=== PATIENT | male | born 1980 | race Caucasian/White ===

== ENCOUNTER 2020-01-11 00:10 | Emergency (ER) | payer MEDICAID, OTHER ==
[~2020-01-11] VITALS: Ht 177.8 cm; Wt 70.0 kg
[2020-01-11] MEDS ORDERED: acetaminophen 325mg tablet PO ONE (00:35)
--- NOTE | 2020-01-11 01:17 | NUR ---
Patient unable to sit still, twitching and moving constantly.
[2020-01-11 03:43] LABS: PARTIAL THROMBOPLASTIN TIME 31 SECONDS (22-32)
[2020-01-11 03:45] LABS: ALANINE AMINOTRANSFERASE 87 U/L (12-78); ALBUMIN 3.2 G/DL (3.4-5.0); ALBUMIN/GLOBULIN RATIO 1.1 (1.1-1.5); ALKALINE PHOSPHATASE 64 IU/L (46-116); ANION GAP 6 (8-16); ASPARTATE AMINO TRANSFERASE 54 U/L (10-37); BILIRUBIN,TOTAL 0.3 MG/DL (0.1-1.0); BLOOD UREA NITROGEN 13 MG/DL (7-18); BUN/CREATININE RATIO 11.9 (5.4-32.0); CALCIUM 8.2 MG/DL (8.5-10.1); CHLORIDE 103 MMOL/L (99-107); CREATININE 1.09 MG/DL (0.60-1.10); GLUCOSE 90 MG/DL (70-104); POTASSIUM 4.3 MMOL/L (3.5-5.1); SODIUM 138 MMOL/L (135-145); TOTAL CARBON DIOXIDE 28.6 MMOL/L (24-32); TOTAL PROTEIN 6.1 G/DL (6.4-8.2); eGFR 75 ML/MIN
[2020-01-11 03:48] LABS: BASOPHILS # (AUTO) 0.1 X10'3 (0-0.2); BASOPHILS % (AUTO) 0.5 % (0-1); EOSINOPHILS # (AUTO) 0.1 X10'3 (0-0.9); EOSINOPHILS % (AUTO) 1.1 % (0-6); HEMOGLOBIN 12.9 g/dl (14.0-17.9); LYMPHOCYTES # (AUTO) 1.8 X10'3 (1.1-4.8); LYMPHOCYTES % (AUTO) 15.9 % (21-51); MEAN CORPUSCULAR HEMOGLOBIN 31.6 PG (27.0-31.0); MEAN CORPUSCULAR HGB CONC 33.8 g/dL (33.0-36.5); MEAN CORPUSCULAR VOLUME 93.6 FL (78-98); MEAN PLATELET VOLUME 7.2 FL (7.4-10.4); MONOCYTES # (AUTO) 0.9 X10'3 (0-0.9); MONOCYTES % (AUTO) 7.8 % (2-12); NEUTROPHILS # (AUTO) 8.6 X10'3 (1.8-7.7); NEUTROPHILS % (AUTO) 74.7 % (42-75); PLATELET COUNT 378 X10'3 (140-440); RED BLOOD COUNT 4.06 X10'6 (4.70-6.10); RED CELL DISTRIBUTION WIDTH 13.2 % (11.5-14.5); WHITE BLOOD COUNT 11.5 X10'3 (4.5-11.0)
[2020-01-11 04:32] VITALS: BP 93/66
--- NOTE | 2020-01-11 05:01 | NUR ---
Patient continued to twitch and mumble during ER visit, even when he was sleeping.
== END 2020-01-11 05:02 | disposition home or self-care (01) ==
LOC: ER 00:11
DX: R50.9 Fever, unspecified (principal); R60.0 Localized edema; F15.10 Other stimulant abuse, uncomplicated; R79.1 Abnormal coagulation profile; I10 Essential (primary) hypertension; Z59.0 Homelessness
CPT/HCPCS: 36415; 71045; 80053; 83735; 84145; 85025; 85610; 85730; 87040; 93005; 99285

== ENCOUNTER 2020-01-15 15:52 | Emergency (ER) | payer MEDICAID ==
[~2020-01-15] VITALS: Ht 175.3 cm; Wt 75.8 kg
[2020-01-15 15:55] VITALS: BP 137/68
[2020-01-15] MEDS ORDERED: BACDS PO (16:10)
[2020-01-15] MEDS ORDERED: triamcinolone acetonide 40mg/ml inj IM ONE (16:10)
[2020-01-15] MEDS ORDERED: CEPH250T PO (16:10)
== END 2020-01-15 16:25 | disposition home or self-care (01) ==
LOC: ER 15:53
DX: L23.7 Allergic contact dermatitis due to plants, except food (principal); L03.115 Cellulitis of right lower limb; I10 Essential (primary) hypertension; F11.90 Opioid use, unspecified, uncomplicated; F15.90 Other stimulant use, unspecified, uncomplicated; Z59.0 Homelessness; Z79.899 Other long term (current) drug therapy
CPT/HCPCS: 96372; 99283; J3301

== ENCOUNTER 2020-10-03 16:25 | Emergency (ER) | payer MEDICAID | END 2020-10-03 18:30 | disposition left against medical advice (07) | LOC: ER 16:26 | DX: R21 Rash and other nonspecific skin eruption (principal); Z53.21 Procedure and treatment not carried out due to patient leaving prior to being seen by health care provider ==